=== PATIENT | male | born 1985 | race Caucasian/White ===

== ENCOUNTER 2021-04-23 21:58 | Emergency (ER) | payer OTHER ==
[~2021-04-23] VITALS: Ht 185.4 cm; Wt 168.1 kg
[2021-04-23 21:59] VITALS: BP 139/80
[2021-04-23] MEDS ORDERED: IBUP80TA PO (22:06)
== END 2021-04-24 01:15 | disposition left against medical advice (07) ==
LOC: M ED 21:58
DX: R31.9 Hematuria, unspecified (principal); Z53.21 Procedure and treatment not carried out due to patient leaving prior to being seen by health care provider

== ENCOUNTER 2021-05-01 08:48 | Emergency (ER) | payer OTHER ==
[~2021-05-01] VITALS: Ht 185.4 cm; Wt 172.3 kg
[~2021-05-01 08:48] MED LIST: IBUP80TA PO
[2021-05-01] MEDS ORDERED: ONDANSETRON 4MG/2ML VIAL IV ONE (09:20)
[2021-05-01] MEDS ORDERED: NS 1,000 ML IV SCH (09:20)
[2021-05-01] MEDS: MORPHINE 4 MG/ML 1ML VIAL/SYRINGE (J2270) IV PRN ×2 (09:41→10:07)
[2021-05-01 09:51] LABS: BASO % 0.3 % (0.0-1.0); EOS # 0.2 10^3/uL (0.0-0.5); EOS % 3.5 % (0.0-3.0); HEMATOCRIT 45.7 % (42.0-52.0); LYMPH # 1.8 10^3/uL (1.5-5.0); LYMPH % 28.3 % (24.0-44.0); MEAN CORPUSCULAR HEMOGLOBIN 31.2 pg (27.0-33.0); MEAN CORPUSCULAR VOLUME 89.1 fl (80.0-96.0); MONO # 0.5 10^3/uL (0.0-0.8); MONO % 7.6 % (2.0-8.0); NEUTROPHILS # 3.8 10^3/uL (1.5-8.5); NEUTROPHILS % 60.1 % (36.0-66.0); PLATELET COUNT, AUTOMATED 227 10^3/uL (150-450); RED BLOOD COUNT 5.13 10^6/uL (4.30-6.10); WHITE BLOOD COUNT 6.3 10^3/uL (4.0-10.0)
[2021-05-01] MEDS ORDERED: KETOROLAC 30 MG/ML 1ML VIAL IV ONE (10:05)
[2021-05-01 10:22] LABS: ALBUMIN 3.8 GM/DL (3.2-5.2); BILIRUBIN,DIRECT 0.1 MG/DL (0.0-0.2); BILIRUBIN,TOTAL 0.3 MG/DL (0.2-1.0); TOTAL PROTEIN 6.8 GM/DL (6.4-8.2)
--- NOTE | 2021-05-01 10:22 | REP ---
INDICATION: RLQ pain hx stones , hematuria COMPARISON: 05/24/2020 TECHNIQUE: Axial noncontrast images from the lung bases to the pubic symphysis with coronal and sagittal reformations. This CT examination was performed using the following dose reduction techniques: Automated exposure control, adjustment of mA and/or kv according to the patient's size, and use of iterative reconstruction technique. FINDINGS: Acute right-sided obstructive uropathy with a edematous enlargement to the right kidney, hydroureteronephrosis and periureteral stranding secondary to a 5 mm obstructing calculus in the mid/distal ureter (series 301 images 119-120). Few small nonobstructing right intrarenal calculi up to 2 mm are also identified. Liver demonstrates hepatosteatosis and presumed 1.1 cm cyst. Spleen, pancreas, gallbladder, bilateral adrenal glands are normal for noncontrast evaluation. Left kidney demonstrates prior partial nephrectomy without acute process or nephrolithiasis. The enteric system is without obstruction or acute inflammatory process. Normal terminal ileum and appendix are identified in the right lower quadrant. Pelvis demonstrates normal bladder and age-appropriate prostate/seminal vesicles. No ascites. No free air. No adenopathy. Abdominal aorta without aneurysm. Musculoskeletal structures are intact. Lung bases are clear. IMPRESSION: Acute right-sided obstructive uropathy with a 5 mm calculus in the mid/distal ureter. Few small nonobstructing right renal calculi noted. Hepatosteatosis and small hepatic cyst. <Electronically signed by Shreyas Antunez > 05/01/21 [id number]
[2021-05-01] MEDS ORDERED: FLOM0.4C39 PO (11:23)
[2021-05-01] MEDS ORDERED: HYDR-3713 PO (11:24)
[2021-05-01 11:31] VITALS: BP 150/82
== END 2021-05-01 11:40 | disposition home or self-care (01) ==
LOC: M ED 08:48
DX: N23 Unspecified renal colic (principal); R31.9 Hematuria, unspecified; Z87.442 Personal history of urinary calculi; K58.9 Irritable bowel syndrome, unspecified; F17.200 Nicotine dependence, unspecified, uncomplicated; K76.0 Fatty (change of) liver, not elsewhere classified; K76.89 Other specified diseases of liver
CPT/HCPCS: 74176; 80047; 80076; 81001; 83605; 83690; 85025; 93041; 96361; 96374; 96375; 99284; J1885; J2270; J2405